=== PATIENT | female | born 1995 | race American Indian/Alaskan Native ===

== ENCOUNTER 2017-07-13 11:06 | Emergency (ER) | payer OTHER ==
[2017-07-13 11:18] VITALS: BMI 33.9
[2017-07-13 11:41] VITALS: TEMP 97.6
--- NOTE | 2017-07-13 11:53 | ED PDOC ---
Arrival/HPI - General Chief Complaint: Back Pain Time Seen by Provider: 07/13/17 11:47 Historian: Patient - History of Present Illness Narrative History of Present Illness (Text): 07/13/17 11:49 Pt is a 22 yr old female who presents to the ER for chronic back pain for the past year. Pt says she was seen by the urgent care center, diagnosed with muscle strain. Pt is here today because she is tired of dealing with the pain and wants relief. Denies trauma, MAS, nausea, vomiting, diarrhea, fever, chills, shortness of breath or any other complaints. 07/13/17 12:00 Time/Duration: Other (1 year) Symptom Onset: Gradual Symptom Course: Unchanged Quality: Aching, Pressure Severity Level: 3, Mild Activities at Onset: Rest Context: Home Past Medical History - Provider Review Nursing Documentation Reviewed: Yes - Travel History Have you recently traveled outside [place] w/in the past 3 mons?: No - Reproductive Menopause: No - Cardiac Hx Cardiac Disorders: No - Pulmonary Hx Respiratory Disorders: No - Neurological Hx Neurological Disorder: No - HEENT Hx HEENT Disorder: No - Renal Hx Renal Disorder: No - Endocrine/Metabolic Hx Endocrine Disorders: No - Hematological/Oncological Hx Blood Disorders: No - Integumentary Hx Dermatological Disorder: No - Musculoskeletal/Rheumatological Hx Musculoskeletal Disorders: No - Gastrointestinal Hx Gastrointestinal Disorders: No - Genitourinary/Gynecological Hx Genitourinary Disorders: No - Psychiatric Hx Psychophysiologic Disorder: No Hx Substance Use: No - Anesthesia Hx Anesthesia: No Hx Anesthesia Reactions: No Hx Malignant Hyperthermia: No Family/Social History - Physician Review Nursing Documentation Reviewed: Yes Family/Social History: Unknown Family HX Smoking Status: Never Smoked Hx Alcohol Use: No Hx Substance Use: No Allergies/Home Meds Allergies/Adverse Reactions: Allergies No Known Allergies Allergy (Verified 08/04/15 18:31) Review of Systems - Review of Systems Constitutional: Normal Respiratory: Normal Cardiovascular: Normal Gastrointestinal: Normal Genitourinary Female: Normal Musculoskeletal: Back Pain Skin: Normal Neurological: Normal. absent: Headache, Dizziness, Focal Weakness, Gait Changes Endocrine: Normal Hemo/Lymphatic: Normal Psychiatric: Normal Physical Exam Vital Signs Reviewed: Yes Vital Signs Temp Pulse Resp BP Pulse Ox 07/13/17 12:43 88 18 131/76 98 07/13/17 11:40 97.6 F 74 16 136/91 H 100 Temperature: Afebrile Blood Pressure: Normal Pulse: Regular Respiratory Rate: Normal Appearance: Positive for: Well-Appearing, Non-Toxic, Comfortable Pain Distress: Mild Mental Status: Positive for: Alert and Oriented X 3 - Systems Exam Head: Present: Atraumatic, Normocephalic Neck: Present: Normal Range of Motion Respiratory/Chest: Present: Clear to Auscultation, Good Air Exchange. No: Respiratory Distress, Accessory Muscle Use Cardiovascular: Present: Regular Rate and Rhythm, Normal S1, S2. No: Murmurs Abdomen: No: Tenderness, Distention, Peritoneal Signs Back: Present: Normal Inspection Upper Extremity: Present: Normal Inspection. No: Cyanosis, Edema Lower Extremity: Present: Normal Inspection. No: Edema Neurological: Present: GCS=15, CN II-XII Intact, Speech Normal Skin: Present: Warm, Dry, Normal Color. No: Rashes Psychiatric: Present: Alert, Oriented x 3, Normal Insight, Normal Concentration Medical Decision Making ED Course and Treatment: 07/13/17 11:51 Pt is a 22 yr old female who presents to the ER for chronic back pain for the past year. Midline, spinous process tenderness; (-) SLR b/l, (+) DAVI on right, SILT and motor function intact b/l Plan Toradol for pain Assess and dispo Will dc home on flexeril and ibuprofen 600mg q8 prn F/U with PMD for PT 07/13/17 12:00 Flexeril for home-->discussed AEs w pt Refer for pain management - Medication Orders Current Medication Orders: Discontinued Medications Ketorolac Tromethamine (Toradol) 30 mg IM STAT STA Stop: 07/13/17 11:48 Last Admin: 07/13/17 12:25 Dose: 30 mg MAR Pain Assessment Document 07/13/17 12:25 EQ (Rec: 07/13/17 12:26 EQ [id number]) Pain Reassessment Is this a pain reassessment? No Sleep Is patient sleeping during reassessment? No Presence of Pain Presence of Pain Yes IM Administration Charges Document 07/13/17 12:25 EQ (Rec: 07/13/17 12:26 EQ [id number]) Charges for Administration # of IM Administrations 1 Disposition/Present on Arrival - Present on Arrival Any Indicators Present on Arrival: Yes History of DVT/PE: No History of Uncontrolled Diabetes: No Urinary Catheter: No History of Decub. Ulcer: No History Surgical Site Infection Following: None - Disposition Have Diagnosis and Disposition been Completed?: Yes Diagnosis: Chronic back pain greater than 3 months duration, Muscle strain Disposition: HOME/ ROUTINE Disposition Time: 12:03 Patient Plan: Discharge Condition: GOOD Discharge Instructions (ExitCare): Low Back Pain in Adults, Upper Back Pain (DC ) Additional Instructions: Vera, thank you for letting us take care of you today. Your provider was JUAN Cain. You were treated for Chronic Back Pain. The emergency medical care you received today was directed at your acute symptoms. If you were prescribed any medication, please fill it and take as directed. It may take several days for your symptoms to resolve. Return to the Emergency Department if your symptoms worsen, do not improve, or if you have any other problems. We are referring you to a paintless dent repair technician for physical therapy Please contact your doctor or call one of the physicians/clinics you have been referred to that are listed on the Patient Visit Information form that is included in your discharge packet. Bring any paperwork you were given at discharge with you along with any medications you are taking to your follow up visit. Our treatment cannot replace ongoing medical care by a primary care provider (PCP) outside of the emergency department. Thank you for allowing the [facility] team to be part of your care today. Prescriptions: Cyclobenzaprine [Flexeril] 5 mg PO TID 5 Days #15 tab Ibuprofen [Motrin Tab] 600 mg PO Q6 PRN 5 Days #20 tab PRN Reason: pain/fever Referrals: Zach Griffin MD [Staff Provider] - Follow up with primary Forms: [facility] ([place])
[2017-07-13 12:44] VITALS: BP 131/76; PULSE 88; RESP 18; O2SAT 98
== END 2017-07-13 12:43 | disposition home or self-care (01) ==
LOC: ED 11:06
DX: G89.29 Other chronic pain (principal); M54.9 Dorsalgia, unspecified; T14.8XXA Other injury of unspecified body region, initial encounter; X58.XXXA Exposure to other specified factors, initial encounter
CPT/HCPCS: 96372; 99283; J1885